=== PATIENT | male | born 1970 | race Caucasian/White ===

== ENCOUNTER 2021-10-11 00:13 | Inpatient (IN) | payer MEDICAID ==
[~2021-10-11] VITALS: Ht 170.2 cm; Wt 83.0 kg
[2021-10-11 00:33] VITALS: BP_SYST 113; BP_SYST 133; BP_DIAS 84
--- NOTE | 2021-10-11 00:57 | NUR ---
MS RN NOTE MRSA SWAB OBTAINED AT THIS TIME.
[2021-10-11] MEDS ORDERED: HYDROCODONE/APAP 5/325MG TABLET PO PRN (01:00)
[2021-10-11] MEDS ORDERED: IV 1/2NS 1000 ML 1,000 ML IV PRN (01:00)
[2021-10-11] MEDS ORDERED: MAGNESIUM HYDROXIDE 30 ML UDC PO PRN (01:00)
[2021-10-11] MEDS ORDERED: DEXTROSE 50%-WATER 50 ML DISP.SYRIN IV PRN (01:00)
[2021-10-11] MEDS ORDERED: Z GUARD REMEDY 4 OZ OINT TP PRN (01:00)
[2021-10-11] MEDS ORDERED: ACETAMINOPHEN 325 MG TABLET PO PRN (01:00)
[2021-10-11] MEDS ORDERED: MAG HYDROX/AL HYDROX/SIMETH 30 ML UDC PO PRN (01:00)
[2021-10-11] MEDS ORDERED: ONDANSETRON HCL/PF 4 MG/2 ML VIAL IVP PRN (01:00)
--- NOTE | 2021-10-11 01:55 | NUR ---
ADMISSION NOTES PATIENT ARRIVED IN UNIT AT 0033 AM, ACCOMPANIED BY 2 EMT'S VIA STRETCHER. A/OX4 AND STEADY GAIT. NO S/S OF APPARENT DISTRESS IN ROOM AIR. DENIES ANY PAIN AT THIS TIME. PATIENT WISHES TO BE FULL CODE. NEW ID BAND ON PATIENT. BELONGINGS INVENTORIED AND SIGNED FOR. PATIENT IS UNVACCINATED WITH COVID AND REFUSED VACCINE FOR PERSONAL REASONS. IV ACCESS ON L. AC #18G NOTED TO BE INTACT AND PATENT. BLOOD SUGAR IN ADMISSION IS 167. DENIES ANY ALLERGIES AND REPORTS SMOKING 2 PACKS OF CIGARETTE PER DAY-- SMOKING CESSATION INITIATED. SKIN INTACT. ORIENTED IN THE UNIT AND THE USE OF CALL LIGHT. REPORTS LOSING WEIGHT OF 20 LBS IN THE LAST MONTH WITHOUT TRYING. REPORTS USING CPAP AT HOME. WILL FOLLOW THROUGH DOCTOR'S ORDERS. V/S FOLLOWS: 133/84, HR-55, RR-20, T-97.5, 99%
--- NOTE | 2021-10-11 02:35 | NUR ---
MS RN NOTE PATIENT PUT IN CPAP AT THIS TIME. SETTING OF 15, 30%.
--- NOTE | 2021-10-11 03:45 | NUR ---
RT LATE ENTRY-- RN CALLED TO ADVISE PT WOULD NEED NOC CPAP. PT WAS AWAKE AND ALERT, SAID HE USES CPAP OF 18 AT HOME. SPO2 96% ON ROOM AIR. PT COMFORTABLE WITH CPAP OF 15, FIO2 30%. CPAP PLUGGED INTO RED OUTLET WITH ALARMS ON AND AUDIBLE. RN AWARE.
[2021-10-11] MEDS: INSULIN REGULAR, HUMAN 100 UNIT/ML 3 ML VIAL SQ PRN ×5 (06:46→22:05)
[2021-10-11] MEDS: BLOOD SUGAR DIAGNOSTIC 1 EACH STRIP IN SCH ×4 (06:49→21:08)
[2021-10-11 07:13] LABS: BASOPHILS # (AUTO) 0.1 K/uL (0.0-0.2); EOSINOPHILS % (AUTO) 3.1 % (0.0-6.0); HEMATOCRIT 41 % (39-51); HEMOGLOBIN 13.8 g/dL (13.5-17.5); LYMPHOCYTES # (AUTO) 2.5 K/uL (0.8-4.8); LYMPHOCYTES % (AUTO) 32.4 % (20.0-44.0); MEAN CORPUSCULAR HGB CONC 34 g/dl (31.0-36.0); MEAN CORPUSCULAR VOLUME 92 fL (80-96); MONOCYTES # (AUTO) 0.4 K/uL (0.1-1.30); MONOCYTES % (AUTO) 5.1 % (2.0-12.0); NEUTROPHILS # (AUTO) 4.6 K/uL (1.8-8.9); NEUTROPHILS % (AUTO) 58.4 % (43.0-81.0); PLATELET COUNT (AUTO) 159 K/uL (150-450); RED BLOOD CELL COUNT(AUTO) 4.44 MIL/uL (4.5-6.0); WHITE BLOOD COUNT (AUTO) 7.9 K/uL (4.3-11.0)
--- NOTE | 2021-10-11 07:23 | NUR ---
MS RN CLOSING NOTE PATIENT IN BED, WITH EYES CLOSED. EASY TO AROUSE. NO S/S OF APPARENT DISTRESS IN CPAP AT THE MOMENT. NO C/O PAIN AT THIS TIME. IV 1/2 NS RUNNING @75MLS/HR AT THIS TIME. NEEDS ATTENDED. SAFETY KEPT IN PLACE THE WHOLE SHIFT. ENDORSED TO MAU, RN'S FOR CONTINUITY OF CARE.
--- NOTE | 2021-10-11 07:30 | NUR ---
ms rn received on bed, awake,alert,oriented x4,not in any form of distress, respirations even and unlabored,no sob noted, lungs are clear,abdomen soft,positive bowel sounds,denies pain at thistime, will monitor patient.
[2021-10-11 07:32] LABS: ALBUMIN 2.6 g/dL (3.4-5.0); BILIRUBIN,TOTAL 0.4 mg/dL (0.2-1.0); CALCIUM, SERUM 7.8 mg/dL (8.5-10.1); MAGNESIUM 2.1 mg/dL (1.8-2.4); TOTAL PROTEIN, SERUM 5.5 g/dL (6.4-8.2)
[2021-10-11] MEDS: PANTOPRAZOLE 40 MG TABLET.DR PO SCH (07:46)
[2021-10-11 08:03] VITALS: BP 115/77
--- NOTE | 2021-10-11 08:30 | NUR ---
ms browning breakfast served,due meds given,tolerated well.
[2021-10-11] MEDS: ALLOPURINOL 100 MG TABLET PO SCH (09:16)
[2021-10-11] MEDS: METFORMIN 500 MG TABLET PO SCH ×2 (09:16→16:59)
[2021-10-11] MEDS: glipiZIDE 5 MG TABLET PO SCH ×2 (11:57→16:58)
[2021-10-11 16:00] VITALS: BP 135/99
[2021-10-11 16:04] VITALS: BP 112/70
[2021-10-11] MEDS ORDERED: ALLO100T PO (16:05)
[2021-10-11] MEDS ORDERED: METF-440 PO (16:06)
--- NOTE | 2021-10-11 18:30 | NUR ---
ms rn on bed, all needs attended,no distress noted.
--- NOTE | 2021-10-11 18:37 | NUR ---
RT Patient received on CPAP of 15, FIO2 30%. At 1033, patient requested to stay on CPAP so he can sleep more. At 1437, patient once again asked to remain on CPAP because he was feeling tired. Checked patient at 1808 and he was sleeping comfortably. Monitored patient throughout shift. No SOB or respiratory distress noted.
--- NOTE | 2021-10-11 19:00 | NUR ---
RN opening notes Received Pt from morning nurse. Pt is sitting in bed comfortably watching TV. Pt is alert and orientedX4. On room air. No SOB. No S/S of distress noted. Cpap at night. ambulates with a steady gait. IV site at RAC # 18 is clean, intact and infuising well 1/2 NS @ 75 ml/hr. safety precautions is maintained. bed at low position, brakes locked, side rails upX2, hob elevated and call light is within reach. Will continue to monitor.
[2021-10-11 20:00] VITALS: BP 119/62
--- NOTE | 2021-10-11 21:00 | NUR ---
RN notes Received Cpap mask from his family. Pt is resting in bed comfortably with Cpap with his own Cpap mask. Charge nurse is aware and informed. RT at the bedside. Will continue to monitor.
--- NOTE | 2021-10-11 21:32 | NUR ---
RT PT RECVD ON ROOM AIR AND READY TO GO ON CPAP MACHINE. PT HAD SOMEONE BRING HIS CPAP MASK FROM HOME. PT IS RESTING COMFORTABLY ON CPAP OF 15 AND 30% FIO2. RN AWARE.
--- NOTE | 2021-10-11 21:59 | NUR ---
RN notes Pt's blood sugar HS was 216. Insulin coverage is given 4 units. snack is provided. Will continue to monitor.
--- NOTE | 2021-10-12 06:30 | NUR ---
RN closing notes Pt is resting in bed comfortably. Pt is alert and orientedX4. On room air. No SOB. No S/S of distress noted. VS is stable. Routine meds were given as ordered. IV site at RAC # 18 is clean, intact and infuising well 1/2 NS @ 75 ml/hr. Kept Pt clean, dry and comfortable. safety precautions is maintained. bed at low position, brakes locked, side rails upX2, hob elevated and call light is within reach. Will endorse to am nurse for YAA.
[2021-10-12] MEDS: BLOOD SUGAR DIAGNOSTIC 1 EACH STRIP IN SCH (06:51)
[2021-10-12] MEDS: INSULIN REGULAR, HUMAN 100 UNIT/ML 3 ML VIAL SQ PRN (06:55)
--- NOTE | 2021-10-12 07:10 | NUR ---
MS RN OPENING NOTES RECEIVED PATIENT AWAKE IN BED WATCHING TV, ON ROOM AIR NO S/S OF RESPIRATORY DISTRESS OR DISCOMFORT. PATIENT IS A/O x4. IV ACCESS RAC #18 RUNNING NS 75 ML/HR. INTACT AND PATENT. NO S/S OF CARDIAC DISTRESS OR DISCOMFORT. SKIN IS INTACT. AMBULATORY AND HAS BRP. SAFETY MEASURES IN PLACE: BED IN LOWEST POSITION AND LOCKED, SIDE RAILS UP x2, CALL LIGHT WITHIN REACH, BED ALARM ON, HOB ELEVATED. WILL CONTINUE TO MONITOR.
--- NOTE | 2021-10-12 07:15 | NUR ---
RT Received patient on room air. HR 56 SPO2 98%. No SOB noted.
[2021-10-12] MEDS: glipiZIDE 5 MG TABLET PO SCH (07:44)
[2021-10-12] MEDS: METFORMIN 500 MG TABLET PO SCH (07:44)
[2021-10-12] MEDS: PANTOPRAZOLE 40 MG TABLET.DR PO SCH (07:44)
[2021-10-12] MEDS: ALLOPURINOL 100 MG TABLET PO SCH (09:21)
--- NOTE | 2021-10-12 12:00 | NUR ---
[employer] OPERATOR NOTES PATIENT DISCHARGED HOME A/Ox4 STABLE ON ROOM AIR NO S/S OF RESPIRATORY DISTRESS OR DISCOMFORT. NO S/S OF CARDIAC DISTRESS OR DISCOMFORT. IV ACCESS RAC #18 REMOVED PRESSURE DRESSING IN PLACE. SKIN INTACT. DISCHARGE AND COSMO EDUCATION GIVEN AND EXPLAINED TO THE PATIENT. PATIENT VERBALIZED UNDERSTANDING. ALL BELONGINGS CONFIRMED WITH PATIENT AND RETURNED. PATIENT LEFT UNIT @1140 ACCOMPANIED BY RN, PRIETO. PATIENT AMBULATORY LEFT WITH FRIEND BENY IN A PRIVATE CAR. CHARGE NURSE AND MD AWARE OF DISCHARGE.
[2021-10-12] MEDS ORDERED: glipiZIDE 5 MG TABLET PO SCH (16:30)
== END 2021-10-12 11:00 | disposition home or self-care (01) | DRG 420 ==
LOC: MED 00:27
PROVIDERS: ADMIT Internal Medicine; ATTEND Internal Medicine
DX: E11.65 Type 2 diabetes mellitus with hyperglycemia (principal); E78.5 Hyperlipidemia, unspecified; G47.33 Obstructive sleep apnea (adult) (pediatric); Z79.84 Long term (current) use of oral hypoglycemic drugs; Z79.899 Other long term (current) drug therapy; Z79.4 Long term (current) use of insulin
CPT/HCPCS: 36415; 80053-TC; 80061-TC; 82962-TC; 83735-TC; 85025-TC; 87081-TC; 94799-TC; G0378; J1815; J3490